=== PATIENT | female | born 1990 | race Asian ===

== ENCOUNTER 2018-09-21 12:00 | Inpatient (IN) ==
[2018-09-21] MEDS ORDERED: KETOROLAC TROMETHAMINE 15 MG/ML VIAL IV ONE (12:19)
[2018-09-21] MEDS ORDERED: SODIUM CHLORIDE 0.9% 1000ML 2,000 ML IV ONE (12:19)
[2018-09-21 13:15] LABS: Hematocrit (blood only) 37.2 % (37-47); Hemoglobin 12.4 g/dL (12.0-16.0); Immature Granulocytes # (auto) 0.02 K/uL (0.00-0.02); Immature Granulocytes % (auto) 0.3 %; Lymphocytes # (auto) 1.71 K/uL (1.2-3.4); Lymphocytes % (auto) 29.2 %; Mean Corpuscular Hgb Conc 33.3 g/dL (32-36); Mean Platelet Volume 10.1 fL (7.4-10.4); Monocytes # (auto) 0.73 K/uL (0.11-0.59); Monocytes % (auto) 12.5 %; Platelet Count 203 K/uL (130-400); RDW Coefficient of Variation 12.1 % (11.5-14.5); RDW Standard Deviation 40.4 fL (36.4-46.3); Red Blood Count 4.09 M/uL (4.2-5.4); White Blood Count 5.86 K/uL (4.8-10.8)
[2018-09-21 13:20] LABS: INR 1.1 (0.9-1.1); Partial Thromboplastin Ratio 1.1; Partial Thromboplastin Time 30.2 Seconds (21.0-31.0); Prothrombin Time 11.6 Seconds (9.0-12.0)
[2018-09-21 13:30] LABS: Albumin Level 3.6 gm/dl (3.4-5.0); BUN Creatinine Ratio 7.2 (10-20); Calcium 9.3 mg/dl (8.5-10.1); Creatinine Clr Calc Pharmacy 84.6 ml/min; Est GFR (African American) 126.9; Est GFR (Non-African American) 109.5; Potassium 3.8 mmol/L (3.5-5.1)
[2018-09-21 13:33] LABS: Albumin Globulin Ratio 0.7 (0.9-2); Bilirubin,Total 0.6 mg/dl (0.2-1); Total Protein 8.6 gm/dl (6.4-8.2)
[2018-09-21 13:34] LABS: Appearance Urine Clear (Clear); Bilirubin Urine Negative (Negative); Blood Urine Negative (Negative); Color Urine Yellow; Glucose Urine UA Negative (Negative); Ketones Urine Negative (Negative); Leukocyte Esterase Urine Negative (Negative); Nitrite Urine Negative (Negative); Protein Urine Negative (Negative); Specific Gravity Urine 1.014 (1.000-1.030); Urobilinogen Urine Negative (Negative)
[2018-09-21] MEDS ORDERED: IOVERSOL 100ml IV PRN (14:02)
--- NOTE | 2018-09-21 14:28 | CT Scan Report ---
CHEST CT WITH CONTRAST CT DOSE: 249.43 mGy.cm HISTORY: Acute fever with cough, weight loss and recent travel. Patient is reportedly from [facility]. [facility] for pulmonary tuberculosis. ? TB fevers x 1 mo, cough, weight loss, travel TECHNIQUE: Multiaxial CT images of the chest were performed following the intravenous administration of contrast. A dose lowering technique was utilized adhering to the principles of ALARA. COMPARISON: None. FINDINGS: Thyroid appears normal. Heart is normal in size without pericardial effusion. Thoracic aorta is sammy l in course and caliber without aneurysm or dissection. The opacified pulmonary arterial tree is unre markable. Conglomerate right supraclavicular adenopathy with ill-defined margins measures up to appro ximately 2.8 x 1.4 cm. axillary adenopathy identified. Heterogeneous pathologically enlarged lymph no luis are also seen throughout the mediastinum with conglomerate subcarinal adenopathy demonstrating ar eas of central necrosis overall measuring up to 3.9 x 2.6 x 3.3 cm in transverse, AP and craniocaudal dimensions. Enlarged paratracheal, precarinal and AP window lymph nodes are also present with promin ent bilateral hilar adenopathy. There are a few calcified lymph nodes present about the right hilum. Trace pleural effusions. No pneumothorax. Scattered multi segmental multilobar bilateral miliary cent rilobular and perilymphatic nodules within a mid and lower lung zone prominent distribution. Atelecta sis noted about the medial segment right middle lobe. No obstructing endobronchial lesion identified. Mild dependent subsegmental right basilar atelectasis. 5 mm pleural-based solid nodule of the ethical hacker ior basal segment left lower lobe, image 192 series 4. Scattered areas of multifocal mucus plugging. No acute process of the imaged upper abdomen. Breast parenchyma and soft tissues appear unremarkable. Bones appear to be intact. IMPRESSION: 1. Extensive pathologic adenopathy of the right supraclavicular distribution and mediastinum with nec rotic lymph nodes present within the subcarinal distribution. 2. Multilobar multi segmental distribution of centrilobular and perilymphatic miliary nodules with tr lu pleural effusions. Differential considerations would include infectious or inflammatory pneumonit is such as primary tuberculosis considering patient history. Pulmonary consultation should be conside red. 3. Mild multifocal mucus plugging with subsegmental atelectasis of the medial segment right middle lo be and inferior segment lingula. Findings were discussed with Dr. Rojas on 09/21/2018 at 2:24 PM Electronically signed by: Haile Khan M.D. 09/21/2018 2:27 PM
--- NOTE | 2018-09-21 14:48 | Emergency Department Note ---
Entered by Natividad Beck acting as a scribe for History of Present Illness General Chief complaint: Fever Source: patient Mode of arrival: ambulatory Limitations: no limitations History of Present Illness Provider complaint: fever Onset (ago): month(s) 1 Location: head Pain Consistency: + other (persistent) Maximum Pain Intensity: 4 Quality: + other (fever) Associated symptoms: + denies other symptoms, + cough and + other (mass); no nausea/vomiting The patient is a 27 year old female who presents to the ER with complaints of a persistent fever that began a month ago. Fevers have been as high as 101 fairly consistently. The patient reports that about a month ago she returned from [facility], where she was for 3 weeks. Per triage note, the patient has had weight loss as well. Patient notes that she has lost a total of 10 pounds. The patient states she also noticed a mass on her neck. She denies any runny nose, nausea, vomiting and diarrhea but notes she has had a cough for about 3 weeks. No other exacerbating or remitting factors. No previous history of TB. Home Medications Home Medications Medication Instructions Recorded Confirmed Type acetaminophen [Tylenol Extra 500 mg PO Q6H PRN 09/21/18 09/21/18 History Strength] Allergies Allergy/AdvReac Type Severity Reaction Status Date / Time No Known Allergies Allergy Unverified 09/21/18 12:51 Past Med/Surg History Medical History No significant past medical history Family History Other Family history non-contributory Social History Feels Safe at Home: Yes Smoking Status: Never smoker Review of Systems See HPI for pertinent positives & negatives. and A total of 10 systems reviewed and were otherwise negative Physical Exam Vital Signs Vital Signs - 24 hr 09/21/18 12:04 09/21/18 13:05 09/21/18 13:33 Temperature 37.6 C H Temperature Source Oral Sepsis Recent Fever Within 48 Hours Yes Sepsis New/Unexplained Change in Mental Status No Sepsis Action Taken by Nursing No Action Required Pulse Rate 104 H 93 H 91 H Pulse Rate from SpO2 Sensor 93 H 92 H Respiratory Rate 18 19 22 Respiratory Effort / Characteristics Non-Labored Spontaneous Respiratory Depth Normal Blood Pressure 94/67 L 103/65 Blood Pressure Mean 76 77 Pulse Oximetry 98 98 98 Oxygen Delivery Method Room Air GENERAL: Sitting up in bed, with persistent cough, non-productive, NAD. Talking in full sentences. OROPHARYNX: no exudate, no erythema, lips, buccal mucosa, and tongue normal and mucous membranes are moist EARS: TMs clear bilaterally. NECK: supple, no nuchal rigidity, + supraclavicular and anterior cervical adenopathy LUNGS: Mild wheezing right upper lobe. Normal chest wall mechanics HEART: no murmurs, S1 normal and S2 normal ABDOMEN: abdomen soft, non-tender, normo-active bowel sounds, no masses, no rebound or guarding. BACK: Back is symmetrical on inspection and there is no deformity, no midline tenderness, no CVA tenderness. SKIN: no rashes and no bruising UPPER EXTREMITIES: upper extremities are grossly normal. LOWER EXTREMITIES: No pitting edema. Calves are equal bilaterally. NEURO EXAM: Normal sensorium, cranial nerves II-XII grossly intact, normal speech, no gross weakness of arms, no gross weakness of legs. Course ED COURSE: Vital signs were reviewed and showed hypotension, tachycardia and a fever. The patients medical record was reviewed The above diagnostic studies were performed and reviewed. ED treatments and interventions as stated above. 1208: The patient was evaluated in room C5. A complete history and physical examination was performed. 1424: I discussed the patients imaging with Dr. Khan [facility]. 1428: I updated the patient. 1431: I reviewed the patient's case with Dr. Guerra - [facility] Hospitalist. He will evaluate the patient for further management. 1438: I discussed my findings with the patient and she understands and agrees with the treatment plan. Based on the patients age, coexisting illnesses, exam and lab findings the decision to treat as an inpatient was made. The patient remained stable while under my care. The patient will be evaluated for further management. Administered Medications Ioversol (Optiray 320 100ml) 94 ml IV ONCE PRN PRN Reason: Interaction Checking Stop: 09/25/18 14:01 Last Admin: 09/21/18 14:03 Dose: 94 ml Documented by: [id number] Discontinued Medications Sodium Chloride (Nss 1000ml) 2,000 mls @ 999 mls/hr IV .Q2H1M ONE Stop: 09/21/18 14:19 Last Admin: 09/21/18 13:16 Dose: 999 mls/hr Documented by: [id number] Ketorolac Tromethamine (Toradol) 15 mg IV NOW ONE Stop: 09/21/18 12:20 Last Admin: 09/21/18 13:14 Dose: 15 mg Documented by: [id number] Medical Decision Making Differential Diagnosis Differential diagnosis: viral syndrome, otitis, pharyngitis, pneumonia, influenza, meningitis, urinary tract infection, sepsis, bacteremia, as well as others were entertained. Home Medications Current Medication List: was personally reviewed by me Laboratory Data Attestation: I reviewed the patient's lab results. Result diagrams: 09/21/18 12:51 09/21/18 12:51 Lab Results 09/21/18 09/21/18 09/21/18 Range/Units 12:45 12:51 12:51 WBC 5.86 (4.8-10.8) K/uL RBC 4.09 L (4.2-5.4) M/uL Hgb 12.4 (12.0-16.0) g/dL Hct 37.2 (37-47) % MCV 91.0 (80-100) fL MCH 30.3 (25-34) pg MCHC 33.3 (32-36) g/dL RDW Std Deviation 40.4 (36.4-46.3) fL RDW Coeff of Aneesh 12.1 (11.5-14.5) % Plt Count 203 (130-400) K/uL MPV 10.1 (7.4-10.4) fL Immature Gran % (Auto) 0.3 % Neut % (Auto) 58.0 % Lymph % (Auto) 29.2 % [place] % (Auto) 12.5 % Eos % (Auto) 0.0 % Baso % (Auto) 0.0 % Immature Gran # (Auto) 0.02 (0.00-0.02) K/uL Neut # (Auto) 3.40 (1.4-6.5) K/uL Lymph # (Auto) 1.71 (1.2-3.4) K/uL [place] # (Auto) 0.73 H (0.11-0.59) K/uL Eos # (Auto) 0.00 (0-0.5) K/uL Baso # (Auto) 0.00 (0-0.2) K/uL PT (9.0-12.0) Seconds INR (0.9-1.1) APTT (21.0-31.0) Seconds PTT Ratio Sodium 134 L (136-145) mmol/L Potassium 3.8 (3.5-5.1) mmol/L Chloride 102 (98-107) mmol/L Carbon Dioxide 25 (21-32) mmol/L Anion Gap 8.0 (3-11) BUN 5 L (7-18) mg/dl Creatinine 0.74 (0.6-1.2) mg/dl Est Cr Clr Drug Dosing 84.6 ml/min Est GFR ( Amer) 126.9 Est GFR (Non-Af Amer) 109.5 BUN/Creatinine Ratio 7.2 L (10-20) Glucose 87 (70-99) mg/dl Lactate (0.4-2.0) mmol/L Calcium 9.3 (8.5-10.1) mg/dl Total Bilirubin 0.6 (0.2-1) mg/dl AST 35 (15-37) U/L ALT 42 (12-78) U/L Alkaline Phosphatase 128 H (45-117) U/L Total Protein 8.6 H (6.4-8.2) gm/dl Albumin 3.6 (3.4-5.0) gm/dl Globulin 5.0 H (2.5-4.0) gm/dl Albumin/Globulin Ratio 0.7 L (0.9-2) Urine Color Yellow Urine Appearance Clear (Clear) Urine pH 5.0 (4.5-7.5) Ur Specific [place] 1.014 (1.000-1.030) Urine Protein Negative (Negative) Urine Glucose (UA) Negative (Negative) Urine Ketones Negative (Negative) Urine Blood Negative (Negative) Urine Nitrite Negative (Negative) Urine Bilirubin Negative (Negative) Urine Urobilinogen Negative (Negative) Ur Leukocyte Esterase Negative (Negative) 09/21/18 09/21/18 Range/Units 12:51 12:53 WBC (4.8-10.8) K/uL RBC (4.2-5.4) M/uL Hgb (12.0-16.0) g/dL Hct (37-47) % MCV (80-100) fL MCH (25-34) pg MCHC (32-36) g/dL RDW Std Deviation (36.4-46.3) fL RDW Coeff of Aneesh (11.5-14.5) % Plt Count (130-400) K/uL MPV (7.4-10.4) fL Immature Gran % (Auto) % Neut % (Auto) % Lymph % (Auto) % [place] % (Auto) % Eos % (Auto) % Baso % (Auto) % Immature Gran # (Auto) (0.00-0.02) K/uL Neut # (Auto) (1.4-6.5) K/uL Lymph # (Auto) (1.2-3.4) K/uL [place] # (Auto) (0.11-0.59) K/uL Eos # (Auto) (0-0.5) K/uL Baso # (Auto) (0-0.2) K/uL PT 11.6 (9.0-12.0) Seconds INR 1.1 (0.9-1.1) APTT 30.2 (21.0-31.0) Seconds PTT Ratio 1.1 Sodium (136-145) mmol/L Potassium (3.5-5.1) mmol/L Chloride (98-107) mmol/L Carbon Dioxide (21-32) mmol/L Anion Gap (3-11) BUN (7-18) mg/dl Creatinine (0.6-1.2) mg/dl Est Cr Clr Drug Dosing ml/min Est GFR ( Amer) Est GFR (Non-Af Amer) BUN/Creatinine Ratio (10-20) Glucose (70-99) mg/dl Lactate 0.7 (0.4-2.0) mmol/L Calcium (8.5-10.1) mg/dl Total Bilirubin (0.2-1) mg/dl AST (15-37) U/L ALT (12-78) U/L Alkaline Phosphatase (45-117) U/L Total Protein (6.4-8.2) gm/dl Albumin (3.4-5.0) gm/dl Globulin (2.5-4.0) gm/dl Albumin/Globulin Ratio (0.9-2) Urine Color Urine Appearance (Clear) Urine pH (4.5-7.5) Ur Specific [place] (1.000-1.030) Urine Protein (Negative) Urine Glucose (UA) (Negative) Urine Ketones (Negative) Urine Blood (Negative) Urine Nitrite (Negative) Urine Bilirubin (Negative) Urine Urobilinogen (Negative) Ur Leukocyte Esterase (Negative) Imaging Data Radiologist's Impression: Radiology results as stated below per my review and the radiologist's interpretation: CHEST CT WITH CONTRAST CT DOSE: 249.43 mGy.cm HISTORY: Acute fever with cough, weight loss and recent travel. Patient is reportedly from [facility]. Clinical concern for pulmonary tuberculosis. ? TB fevers x 1 mo, cough, weight loss, travel TECHNIQUE: Multiaxial CT images of the chest were performed following the intravenous administration of contrast. A dose lowering technique was utilized adhering to the principles of ALARA. COMPARISON: None. FINDINGS: Thyroid appears normal. Heart is normal in size without pericardial effusion. Thoracic aorta is normal in course and caliber without aneurysm or dissection. The opacified pulmonary arterial tree is unremarkable. Conglomerate right supraclavicular adenopathy with ill-defined margins measures up to approximately 2.8 x 1.4 cm. axillary adenopathy identified. Heterogeneous pathologically enlarged lymph nodes are also seen throughout the mediastinum with conglomerate subcarinal adenopathy demonstrating areas of central necrosis overall measuring up to 3.9 x 2.6 x 3.3 cm in transverse, AP and craniocaudal dimensions. Enlarged paratracheal, precarinal and AP window lymph nodes are also present with prominent bilateral hilar adenopathy. There are a few calcified lymph nodes present about the right hilum. Trace pleural effusions. No pneumothorax. Scattered multi segmental multilobar bilateral miliary centrilobular and perilymphatic nodules within a mid and lower lung zone prominent distribution. Atelectasis noted about the medial segment right middle lobe. No obstructing endobronchial lesion identified. Mild dependent subsegmental right basilar atelectasis. 5 mm pleural-based solid nodule of the posterior basal segment left lower lobe, image 192 series 4. Scattered areas of multifocal mucus plugging. No acute process of the imaged upper abdomen. Breast parenchyma and soft tissues appear unremarkable. Bones appear to be intact. IMPRESSION: 1. Extensive pathologic adenopathy of the right supraclavicular distribution and mediastinum with necrotic lymph nodes present within the subcarinal d istribution. 2. Multilobar multi segmental distribution of centrilobular and perilymphatic miliary nodules with trace pleural effusions. Differential considerations would include infectious or inflammatory pneumonitis such as primary tuberculosis considering patient history. Pulmonary consultation should be considered. 3. Mild multifocal mucus plugging with subsegmental atelectasis of the medial segment right middle lobe and inferior segment lingula. Findings were discussed with Dr. Rojas on 09/21/2018 at 2:24 PM Electronically signed by: Haile Khan M.D. 09/21/2018 2:27 PM Blood Pressure Blood Pressure Findings: Low blood pressure Blood Pressure Disposition: further management by hospitalist MISTI Narrative Patient is a 27-year-old female who presents the ER for cough associated with a fever which is been present for the past 4 weeks. Fevers have been 101-102. Patient has had weight loss. Labs were obtained showed no significant leukocytosis or anemia. INR is unremarkable. BMP along with LFTs and bilirubin was unremarkable. UA was negative. Sputum cultures were ordered. CT of the chest suggest primary TB/tuberculosis. Discussed with infectious disease and they recommended holding on antibiotics until confirmatory testing is performed. Discussed with the hospitalist and they are updated bedside. Patient was given IV fluids and IV Toradol. He was updated and admitted to the hospital for further work-up of her tuberculosis. Impression & Plan Tuberculosis, Fever, Hypotension Discharge Plan Visit Data Chief Complaint: Fever ED Provider: Bobby Rojas Discharge Problem: Tuberculosis, Fever, Hypotension Patient Disposition: Being Evaluated by Hospitalist Forms Stand Alone Forms: My [facility] Prescriptions Prescriptions: No Action acetaminophen [Tylenol Extra Strength] 500 mg Tablet 500 mg PO Q6H PRN (Reason: Pain) RF: 0 Referrals Referrals: [facility] [Primary Care Provider] - Discharge Problem: Fever Qualifiers: Fever type: unspecified Qualified Code(s): R50.9 - Fever, unspecified Hypotension Qualifiers: Hypotension type: unspecified hypotension type Qualified Code(s): I95.9 - Hypotension, unspecified The scribe's documentation has been prepared under my direction and personally reviewed by me in its entirety. I confirm that the note above accurately reflects all work, treatment, procedures, and medical decision making performed by me.
--- NOTE | 2018-09-21 15:00 | History & Physical Report ---
Date of Service September 21, 2018 Assessment & Plan (1) Tuberculosis: Patient is here with possible tuberculosis seen on CT scan. Her symptoms are consistent. Infectious disease consult be undertaken. 3 sputum for AFB will be drawn. Recored returned from [place] and there is a pending gold Quant iferon drawn on 09/18. Infectious disease recommends no antibiotic therapy at this time until we have confirmation of tuberculosis. There is not focal or atypical infiltrate seen on chest CT nor she having significant pulmonary symptoms to warrant treating [facility] pneumonia. At this time should be on respiratory airborne isolation History of Present Illness Primary Care Provider: [facility] The patient is a 27 year old female who presents to the ER with complaints of a persistent fever that began 3 weeks ago. Fevers have been as high as 101 fairly consistently. The patient reports that about a month ago she returned from [facility], where she was for 3 weeks. 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 We are trying to arrange records from the clinic through the ER. Phone #[phone]. Reportedly the patient did have testing there including serology and she believes she had a TB test there 2. The patient states she also noticed a mass at the base of her right neck over the last few weeks also. She denies any runny nose, nausea, vomiting and diarrhea. The ER notes the patient was complaining of a cough she denied a cough to me. Patient denies having any recent exposure to tuberculosis she believes she was tested in May regarding tuberculosis and was deemed disease-free. She does recall that as a youth her one sister was receiving tuberculosis treatment. She states that she did complete a course of azithromycin through the clinic in [place]. Currently is comfortable and without complaints Allergies Allergy/AdvReac Type Severity Reaction Status Date / Time No Known Allergies Allergy Unverified 09/21/18 12:51 Home Medications Home Medications Medication Instructions Recorded Confirmed Type acetaminophen [Tylenol Extra 500 mg PO Q6H PRN 09/21/18 09/21/18 History Strength] Past Med/Surg History Medical History No significant past medical history Family History Sister Lung disease She believes her sister had tuberculosis as when the patient was very young Other Family history non-contributory Social History Feels Safe at Home: Yes Smoking Status: Never smoker Review of Systems Review of Systems: ROS: well nourished well developed. No double vision blurry vision No problems with speech or swallowing No palpitations, chest pain or pressure No Wheezing was listed complaints of coughing in the intake review of systems No abdominal pain nausea vomiting diarrhea patient had a 10 pound weight loss over the last 3 weeks No burning urine urine frequency or changes in color No focal joint pain or muscle pain No skin rashes or oral lesions No unusual bruising or bleeding No focused back pain or numbness or loss of strength No changes in memory or confusion Physical Exam Physical Exam: The patient appeared well nourished and normally developed. But petite Vital signs as documented. Head exam is unremarkable. normocephalic, atraumatic Neck is without jugular venous distension, there is a 4 firm 2 x 3 cm mass at the base of her right neck which is mobile likely lymphadenopathy Lungs are clear to auscultation and percussion. Cardiac exam reveals Rhythm is regular. First and second heart sounds normal. Abdominal exam reveals normal bowel sounds, no masses, no organomegaly Extremities are nonedematous and both pedal pulses are present Neurologic exam is A&Ox3, no focal deficits, strength is equal bilateral Psychologically seems neither anxious or depressed Skin is warm Dry without bruises or lesions Results & Data Vital Signs (Past 12 Hours) Vital Signs Temp Pulse Resp BP Pulse Ox 09/21/18 13:33 91 H 22 98 09/21/18 13:05 93 H 19 103/65 98 09/21/18 12:04 37.6 C H 104 H 18 94/[address] chest . Extensive pathologic adenopathy of the right supraclavicular distribution and mediastinum with necrotic lymph nodes present within the subcarinal distribution. 2. Multilobar multi segmental distribution of centrilobular and perilymphatic miliary nodules with trace pleural effusions. Differential considerations would include infectious or inflammatory pneumonitis such as primary tuberculosis considering patient history. Pulmonary consultation should be considered. 3. Mild multifocal mucus plugging with subsegmental atelectasis of the medial segment right middle lobe and inferior segment lingula.
--- NOTE | 2018-09-21 15:42 | Infectious Disease Consult ---
Date of Consultation September 21, 2018 Assessment & Plan (1) PNA (pneumonia): highly suspicious for TB. Spoke with ER and primary service, will be admitted and placed in airborne isolation. will need sputum for routine and AFB x 3 or bronch if unable to provide. IGRA pending. hold abx until smear reviewed. She will need testing prior to initiation of abx and will need HIV testing as well. will follow results of sputum culture/smear and further discuss treatment based on results. History of Present Illness History of Present Illness called by ER due to concern for TB on ct chest with necrotic lymph nodes and infiltrates. pt is in airborne isolation in ER at time of my exam, discussed with ER and primary service. She is from [facility], currently studying in [place]. Has a sister who was treated for TB when the patient was 5 or 6 years old (her sister is 10 years older), no other known TB contacts. Travelled back to [facility] in 04/2018 for 3 weeks to visit family, denies sick contacts while there. For the past month she has had increased cough, intermittent yellow sputum, no blood, pleuritic cp, sob, no wheeze, f/c - up to 102 on daily basis, > 10lb unintentional weight loss, appetite stable and night sweats. She was treated at a clinic in [place] 2 weeks ago and given a z pack with no improvement, unclear if she had imaging. Also c/o painful mass base of right neck, ct showing necrotic node, denies trauma, no opening no drainage. Her is currently studying here at [employer], she came here in the last week due to ongoing illness to be with her . She states she had IGRA done in [place] before travelling here, unclear result. States previous TB testing in the past negative. 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 She denies having room mates, she has no children and denies any recent contact with children. No sputum culture done. currently afebirle, comfortable. no cp, no cough on my exam, no abd pain, no n/v/d, no new meds other than recent z pack, no gu symptoms. Allergies Allergy/AdvReac Type Severity Reaction Status Date / Time No Known Allergies Allergy Unverified 09/21/18 12:51 Home Medications Home Medications Medication Instructions Recorded Confirmed Type acetaminophen [Tylenol Extra 500 mg PO Q6H PRN 09/21/18 09/21/18 History Strength] Patient History Medical History No significant past medical history Family History Sister Lung disease She believes her sister had tuberculosis as when the patient was very young Other Family history non-contributory Social History Feels Safe at Home: Yes Smoking Status: Never smoker Review of Systems Review of Systems: All systems reviewed & are unremarkable except as noted in HPI & below Physical Exam Constitutional: WD/WN, vitals as above Eyes: PERRL, conjunctivae normal, anicteric sclerae ENMT: external ear and nose normal, oropharynx normal Respiratory: normal respiratory effort, lungs clear to auscultation Auscultation: + diminished lung sounds Cardiovascular: RRR, no murmur, no edema Gastrointestinal (Abdomen): normal bowel sounds, soft, nontender, no hepatosplenomegaly Musculoskeletal: no cyanosis or clubbing, extremities motor strength 5/5 Skin: no rashes, warm and dry right supraclavicular enlarged, tener node, no erythema, no warmth Psychiatric: A+Ox3, euthymic affect Results & Data Vital Signs (Past 12 Hours) Vital Signs Temp Pulse Pulse Resp BP BP Pulse Ox 09/21/18 15:27 83 21 100/61 99 09/21/18 13:33 91 H 22 98 09/21/18 13:05 93 H 19 103/65 98 09/21/18 12:04 37.6 C H 104 H 18 94/67 L 98
[2018-09-21] MEDS ORDERED: SODIUM CHLORIDE 0.9% 1,000 ML IV SCH (16:11)
[2018-09-21] MEDS ORDERED: ONDANSETRON INJ 2 MG/ML 2 ML VIAL IV PRN (16:11)
[2018-09-22] MEDS: ACETAMINOPHEN 325 MG TAB PO PRN ×3 (00:04→16:35)
[2018-09-22 07:58] LABS: Pregnancy Test, Serum Negative (Negative)
--- NOTE | 2018-09-22 09:39 | Family Medicine Progress Note ---
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 Possible TB -ID consulted. Pending sputum culture - may need bronch since having no phlegm. pending gold Quantiferon drawn on 09/18 at [facility]. -HIV screen and preg test ordered as per ID recommendation. -ID recommends no antibiotic therapy at this time until we have confirmation of tuberculosis. -Continue respiratory airborne isolation primary contact. Brother (Emergency Medical Technician) phone no - [phone] [facility] [phone] Subjective admitted for likely pulmonary TB Continues to have coughing. No phlegm Fever - Tmax 38.1 last night. appetite good c/o forehead ache Physical Exam Constitutional: + ill appearing and + thin Respiratory: normal respiratory effort, lungs clear to auscultation persistently coughing during visit Cardiovascular: RRR, no murmur, no edema Gastrointestinal (Abdomen): normal bowel sounds, soft, nontender, no hepatosplenomegaly Psychiatric: A+Ox3, euthymic affect Lymphatic: Large Right supraclavidular lymph node + Results & Data Vital Signs (Past 12 Hours) Vital Signs Temp Pulse Pulse Resp BP Pulse Ox 09/22/18 09:08 37.9 C H 09/22/18 07:55 37.0 C 89 16 103/66 100 09/22/18 04:00 36.7 C 09/21/18 23:55 38.1 C H 102 H 18 96/62 L 97
[2018-09-22 13:23] LABS: Pregnancy Test, Urine Negative (Negative)
--- NOTE | 2018-09-22 14:37 | Infectious Disease Progress Nt ---
Date of Service September 22, 2018 Assessment & Plan (1) PNA (pneumonia): highly suspicious for TB. continue airborne isolation. will need sputum for routine and AFB x 3 or bronch if unable to provide. IGRA pending. hold abx until smear reviewed. routine sputum culture ordered as well. will follow results of sputum culture/smear and further discuss treatment based on results. If smear + AFB would start the following medications: INH 300mg daily vitamin B6 25 mg daily Rifampin 600mg po daily Ethambutol 800mg daily pyrazinamide 1000mg daily would prefer to have sputum specimen obtained prior to initiation of abx to help increase yield. did discuss case with [facility] earlier today, will plan to do intake visit on Tuesday. Await culture results. Subjective pt remains in isolation, awaiting sputum cultures, reportedly unable to provide specimen. had fever overnight tmax 38.1. wbc 5.8. urine negative, HIV negativ, IGRA pending. uric acid ordered as will be needed by [facility]. blood cultures pending. no abx as awaiting afb smear. Results & Data Vital Signs (Past 12 Hours) Vital Signs Temp Pulse Resp BP Pulse Ox 09/22/18 09:08 37.9 C H 09/22/18 07:55 37.0 C 89 16 103/66 100 09/22/18 04:00 36.7 C
[2018-09-23] MEDS: ACETAMINOPHEN 325 MG TAB PO PRN ×2 (02:39→12:09)
[2018-09-23 06:32] LABS: Hematocrit (blood only) 33.3 % (37-47); Hemoglobin 11.1 g/dL (12.0-16.0); Mean Corpuscular Hgb Conc 33.3 g/dL (32-36); Mean Corpuscular Volume 89.8 fL (80-100); Mean Platelet Volume 9.6 fL (7.4-10.4); Platelet Count 186 K/uL (130-400); RDW Coefficient of Variation 12.1 % (11.5-14.5); RDW Standard Deviation 39.5 fL (36.4-46.3); Red Blood Count 3.71 M/uL (4.2-5.4); White Blood Count 5.34 K/uL (4.8-10.8)
[2018-09-23 07:09] LABS: BUN Creatinine Ratio 7.1 (10-20); Calcium 8.4 mg/dl (8.5-10.1); Creatinine Clr Calc Pharmacy 99.4 ml/min; Est GFR (African American) 140.5; Est GFR (Non-African American) 121.2; Potassium 3.9 mmol/L (3.5-5.1)
--- NOTE | 2018-09-23 10:04 | Family Medicine Progress Note ---
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 Possible TB -ID consulted. Pending sputum culture - Since continuing to have dry cough - spoke to Dr. Kay - will arrange bronch today to get sample. pending gold Quantiferon drawn on 09/18 at [facility]. -HIV screen and preg test negative. -ID recommends no antibiotic therapy at this time until we have confirmation of tuberculosis. -Continue respiratory airborne isolation primary contact. Brother (Stemhole Borer) phone no - [phone] [facility] [place] - [phone] Subjective Had fever again last night 39 degrees Cough still dry. No phlegm. Denies shortness of breath appetite - normal. no chest pain Physical Exam Constitutional: + ill appearing and + thin Respiratory: normal respiratory effort, lungs clear to auscultation Cardiovascular: RRR, no murmur, no edema Gastrointestinal (Abdomen): normal bowel sounds, soft, nontender, no hepatosplenomegaly Psychiatric: A+Ox3, euthymic affect Lymphatic: right supraclavicular enlarged lymph node + Results & Data Vital Signs (Past 12 Hours) Vital Signs Temp Pulse Resp BP Pulse Ox 09/23/18 07:26 36.3 C L 72 16 97/61 L 99 09/23/18 06:03 36.6 C 09/23/18 02:39 39 C H 09/22/18 23:42 37.6 C H 95 H 18 100/64 99
--- NOTE | 2018-09-23 13:08 | Pre Anesthesia Assessment ---
Date of Service September 23, 2018 Pre Sedation Assessment Vital Signs Temp Pulse Resp BP Pulse Ox 09/23/18 16:13 36.7 C 84 16 96/61 L 99 09/23/18 12:10 38.7 C H 09/23/18 07:26 36.3 C L 72 16 97/61 L 99 09/23/18 06:03 36.6 C 09/23/18 02:39 39 C H 09/22/18 23:42 37.6 C H 95 H 18 100/64 99 09/22/18 21:25 36.8 C 97 H 18 97/76 L 97 Pre-Sedation Airway Assessment Smoking Status: Never smoker Notes The planned sedation has been discussed with the patient. Informed Consent was obtained. I have identified the patient, determined the appropriateness of sedation and have assessed the patient immediately prior to the procedure. All medicine(s) and interventions are by my order. 500 mcg fentanyl to bedside, Precedex infusion with 30 mcg bolus over 10 minutes Patient n.p.o. greater than 8 hours secondary to breakfast at 9 AM. No prior anesthesia, no known allergies Danielle Cinthya score class I ASA class I Supervising Physician Co-Signing Physician Notes Sedation occurring in ICU with digital manager, advanced airway adjuncts.
--- NOTE | 2018-09-23 13:09 | Procedure Note ---
Procedure Note: Bronchoscopy Procedure Procedure date: September 23, 2018 Indication: [place] female with concern for tuberculosis. Procedure: fiberoptic bronchoscopy Pre-procedure indication: Reactive lymphadenopathy, mucoid impaction, concern for miliary tuberculosis Post-procedure Diagnosis: same as above Prior to Procedure: Informed Consent: The risks, benefits, indications, potential complications, and alternatives were explained to the patient and informed consent obtained. Attending Staff: Se Kay DO Resident/APC: Not applicable Skin Prep: Not applicable Anesthesia: Continuous infusion of Precedex with a total 250 mcg fentanyl given in 100 mcg aliquots The identity of the patient was confirmed and a bedside time out was performed. Description of Procedure: Fiberoptic bronchoscopy was performed via full facemask CPAP. Bronchioalveolar lavage right middle lobe was performed. Evaluation for diffuse alveolar hemorrhage was obtained, #3 50 mL aliquots of normal saline was instilled into the left middle lobe and removed (85 mL normal saline removed), there was no evidence of bleeding at all. A bronchial brushing of the right lower lobe was obtained. Findings included: Mild hyperemia of the large central airways, no evidence of mucoid impaction, no evidence of distal mucous. Images were obtained and are saved in the patient's chart. Complications: None Specimens: Bronchial washings sent for culture and Gram stain, cytology, fungal elements, and AFB stain and culture. Estimated blood loss: Zero
[2018-09-23] MEDS ORDERED: fentaNYL citrate 100 MCG/2 ML VIAL IV STA (19:06)
[2018-09-23] MEDS ORDERED: DEXMEDETOMIDINE HCL 200 MCG in SODIUM CHLORIDE 0.9% 48 ML IV SCH (19:07)
[2018-09-23] MEDS ORDERED: DexMEDEtomidine BOLUS FROM BAG IV ONE (19:07)
[2018-09-23] MEDS ORDERED: fentaNYL citrate 100 MCG/2 ML VIAL ONE (19:15)
[2018-09-23] MEDS ORDERED: GLYCOPYRROLATE 0.2 MG/ML VIAL ONE (19:25)
[2018-09-23] MEDS ORDERED: GLYCOPYRROLATE 0.2 MG/ML VIAL IV ONE (19:25)
--- NOTE | 2018-09-23 20:05 | Post Anesthesia Assessment ---
Date of Service September 23, 2018 Procedural start time 1929 procedural end time 1999 Anesthesia: Precedex infusion 0.2 mcg/kg/min after 30 mcg bolus given over 10 minutes. Fentanyl IV 100 mcg IV push x2 additional 50 mcg x 1 total 250 mcg given Total sedation time: 30 minutes At end of sedation patient is alert oriented asked 1 to anticipate bronchoscopy results. Vital signs unchanged from admission. Stable for downgrade to previous room. She will not be discharged from the hospital today. Post Sedation Assessment Vital Signs Temp Pulse Pulse Resp BP Pulse Ox 09/23/18 19:47 97 H 14 95/66 L 100 09/23/18 19:39 89 14 116/82 100 09/23/18 16:13 36.7 C 84 16 96/61 L 99 09/23/18 12:10 38.7 C H 09/23/18 07:26 36.3 C L 72 16 97/61 L 99 09/23/18 06:03 36.6 C 09/23/18 02:39 39 C H 09/22/18 23:42 37.6 C H 95 H 18 100/64 99 09/22/18 21:25 36.8 C 97 H 18 97/76 L 97 Post Sedation Plan On clinical assessment, the patient appears to have tolerated the sedation without complications. Patient is recovering as anticipated. Patient will continue to be monitored by nursing and may be discharged when sedation discharge criteria are met per below protocol. Upon Completions of procedure and additional 15 minutes continue every 5 minute vital signs and the P.A.R. score; then discharge to a Phase I or Fast Track to Phase II per the following guidelines: * Discharge Patient to appropriate Phase II area if PAR is 8 or greater or return to pre- procedure baseline. The post - procedure orders will be as directed. * If PAR score is less than 8 or not return to pre-procedure baseline then patient will follow Phase I monitoring till PAR is reached for Phase II. The Phase I may be done in procedure room or may call to secure a Phase I area. * If naloxone or flumazenil are used for reversal, hold in Phase I for continued monitoring from when last reversal dose was given for a minimum of 60 minutes or longer pending the nurse and/or physician discretion of patient condition before discharge to Phase II. Please call the Sedation Physician to re-evaluate and complete post-note for discharge to Phase II area. Do NOT discharge from procedure sedation or Phase 1 until post- sedation evaluation note is complete by procedure /sedation MD Sedation Discharge Instructions to be given to the patient at discharge to home.
[2018-09-23] MEDS ORDERED: ACETAMINOPHEN 65 ML IV ONE (21:30)
--- NOTE | 2018-09-24 07:33 | Infectious Disease Progress Nt ---
Date of Service September 24, 2018 Assessment & Plan (1) PNA (pneumonia): highly suspicious for TB. continue airborne isolation. s/p bronch, AFB smear and culture pending. IGRA pending. sputum cultures ordered, not obtained as pt unable to provide specimen. will follow results of sputum culture/smear but due to high suspicion for TB and ongoing fevers, will start TB emperically in hospital. She will continue her treatment with [facility] tomorrow. She will plan to have intake eval at that time. She will need to remain on home isolation until she is able to provide 3 negative smears - additional sputum will be obtained by [facility]. Now that specimen has been collected will start the following medications and will follow smear and culture results: INH 300mg daily vitamin B6 25 mg daily Rifampin 600mg po daily Ethambutol 800mg daily pyrazinamide 1000mg daily Subjective pt still with intermittent fevers, 39.2 overnight. s/p bronch yesterday, tolerated well. fungal, routine and afb cultures pending, afb smear pending as well. blood cultures remain negative IGRA pending, test and HIV test are negative. Results & Data Vital Signs (Past 12 Hours) Vital Signs Temp Pulse Pulse Resp BP Pulse Ox 09/24/18 00:53 36.8 C 75 20 92/52 L 97 09/23/18 21:13 39.2 C H 103 H 16 107/71 94 09/23/18 20:50 38.2 C H 100 H 16 100/63 94 09/23/18 20:30 102 H 16 108/68 100 09/23/18 20:25 98 H 16 111/69 100 09/23/18 20:20 107 H 16 98/66 L 100 09/23/18 20:15 97 H 16 107/69 100 09/23/18 20:10 98 H 16 103/67 100 09/23/18 20:05 97 H 16 100/64 100 09/23/18 20:00 105 H 16 103/66 100 09/23/18 19:55 100 H 16 106/76 100 09/23/18 19:50 94 H 16 107/71 100 09/23/18 19:47 97 H 14 95/66 L 100 09/23/18 19:39 89 14 116/82 100 Laboratory Results Microbiology 09/21/18 12:51 Blood Aerobic Blood Culture - Preliminary No growth in Aerobic bottle after 48 hours. 09/21/18 12:51 Blood Anaerobic Blood Culture - Preliminary No growth in Anaerobic bottle after 48 hours. 09/21/18 12:55 Blood Aerobic Blood Culture - Preliminary No growth in Aerobic bottle after 48 hours. 09/21/18 12:55 Blood Anaerobic Blood Culture - Preliminary No growth in Anaerobic bottle after 48 hours.
--- NOTE | 2018-09-24 09:05 | Family Medicine Progress Note ---
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 Possible TB -ID consulted. Underwent bronch 09/23 to get sample for culture. Results pending. pending gold Quantiferon drawn on 09/18 at [facility]. -considering persistent spiking fever - ID starting treatment for TB - INH, Ethambutol, pyrazinamide, rifampin - reviewed side effects. -Continue respiratory airborne isolation primary contact. Brother (Page Designer) phone no - [phone] [facility] clinic - [phone] Subjective had fever again last night. cough still present without phlegm. appetite low this morning denies shortness of breath, chest pain Physical Exam Constitutional: + ill appearing and + thin sitting at the edge of bed Respiratory: normal respiratory effort, lungs clear to auscultation Cardiovascular: RRR, no murmur, no edema Gastrointestinal (Abdomen): normal bowel sounds, soft, nontender, no hepatosplenomegaly Psychiatric: A+Ox3, euthymic affect Lymphatic: right supraclavicular LN + Results & Data Vital Signs (Past 12 Hours) Vital Signs Temp Pulse Resp BP Pulse Ox 09/24/18 07:41 37.6 C H 87 20 101/66 100 09/24/18 00:53 36.8 C 75 20 92/52 L 97 09/23/18 21:13 39.2 C H 103 H 16 107/71 94
[2018-09-24] MEDS: rifAMPin 300 MG CAPSULE PO SCH (09:26)
[2018-09-24] MEDS: ETHAMBUTOL HCL 400 MG TAB PO SCH (09:26)
[2018-09-24] MEDS: ISONIAZID 300 MG TAB PO SCH (09:27)
[2018-09-24] MEDS: PYRIDOXINE HCL 50 MG TAB PO SCH (09:27)
[2018-09-24] MEDS: PYRAZINAMIDE 500 MG TABLET PO SCH (09:27)
[2018-09-24] MEDS: ACETAMINOPHEN 325 MG TAB PO PRN ×2 (09:40→20:43)
[2018-09-25 07:15] LABS: Hematocrit (blood only) 34.1 % (37-47); Hemoglobin 11.4 g/dL (12.0-16.0); Mean Corpuscular Hgb Conc 33.4 g/dL (32-36); Mean Corpuscular Volume 90.2 fL (80-100); Mean Platelet Volume 9.4 fL (7.4-10.4); Platelet Count 180 K/uL (130-400); RDW Coefficient of Variation 12.1 % (11.5-14.5); RDW Standard Deviation 40.2 fL (36.4-46.3); Red Blood Count 3.78 M/uL (4.2-5.4); White Blood Count 5.76 K/uL (4.8-10.8)
[2018-09-25 07:49] LABS: BUN Creatinine Ratio 9.8 (10-20); Calcium 8.6 mg/dl (8.5-10.1); Creatinine Clr Calc Pharmacy 94.9 ml/min; Est GFR (African American) 138.4; Est GFR (Non-African American) 119.4; Potassium 4.1 mmol/L (3.5-5.1)
[2018-09-25 09:34] LABS: Quantiferon Mitogen-NIL 5.51 IU/ML; Quantiferon NIL 2.77 IU/ML; Quantiferon TB Gold Plus POSITIVE (NEGATIVE); Quantiferon TB1-NIL 4.66 IU/ML; Quantiferon TB2-NIL 4.64 IU/ML
[2018-09-25] MEDS: PYRIDOXINE HCL 50 MG TAB PO SCH (09:54)
[2018-09-25] MEDS: ISONIAZID 300 MG TAB PO SCH (09:55)
[2018-09-25] MEDS: PYRAZINAMIDE 500 MG TABLET PO SCH (09:55)
[2018-09-25] MEDS: ETHAMBUTOL HCL 400 MG TAB PO SCH (09:55)
[2018-09-25] MEDS: rifAMPin 300 MG CAPSULE PO SCH (09:55)
--- NOTE | 2018-09-25 10:12 | Infectious Disease Progress Nt ---
Date of Service September 25, 2018 Assessment & Plan (1) PNA (pneumonia): highly suspicious for TB. continue airborne isolation. s/p bronch, AFB smear negative, culture pending. IGRA +, sister had TB during childhood. sputum cultures ordered, not obtained as pt unable to provide specimen. will follow results of sputum culture/smear but due to high suspicion for TB and ongoing fevers, will start TB meds started yesterday in hospital. She is tolerating well. She will continue her treatment with [facility] tomorrow. She will plan to have intake eval at time of d/c. She will need to remain on home isolation, she is eager to travel back to [place], she will be unable to so at this time. due to negative afb bronch smear but + IGRA she will remain on meds. would benefit from lymph node aspiration and culture - routine and afb as she may have isolated lymph node disease but will continue to follow bronch culture as well. she has not had breakfast. Ideally, if aspirate could be done today, she could be d/c after she receives abx with plans to follow with [facility] tomorrow. will discuss with primary. Continue abx for now. INH 300mg daily vitamin B6 25 mg daily Rifampin 600mg po daily Ethambutol 800mg daily pyrazinamide 1000mg daily Subjective pt seen in followup, s/p bronch, afb smear negative, routine culture with nml nida only. IGRA +. Started on 4 abx yesterday emperically pending cultures, tolerating well. afebrile since 11 am yesterday. has not eaten breakfast yet. still having pain in right neck, remains swollen. no f/c. no cp, no cough, no sob. no abd pain, no n/v/d. no hemoptysis. she is anxious to be d/c home, she is also eager to travel back to [place], states she is enrolled in summer classes there. did fly to [place] last week. Review of Systems Review of Systems: All systems reviewed & are unremarkable except as noted in HPI & below Physical Exam Constitutional: WD/WN, vitals as above Eyes: PERRL, conjunctivae normal, anicteric sclerae ENMT: external ear and nose normal, oropharynx normal Neck: normal visual inspection (right supraclavicular tender lymph node unchanged, no opening) Respiratory: normal respiratory effort, lungs clear to auscultation Cardiovascular: RRR, no murmur, no edema Gastrointestinal (Abdomen): normal bowel sounds, soft, nontender, no hepatosplenomegaly Musculoskeletal: no cyanosis or clubbing, extremities motor strength 5/5 Skin: no rashes, warm and dry Psychiatric: A+Ox3, euthymic affect Results & Data Vital Signs (Past 12 Hours) Vital Signs Temp Pulse Resp BP Pulse Ox 09/25/18 06:23 36.8 C 75 16 102/67 99 09/24/18 23:25 37.2 C 101 H 16 94/62 L 97 Laboratory Results Microbiology 09/23/18 19:15 Bronch [place],Right Middle Lobe Acid Fast Bacilli Smear - Final 09/23/18 19:15 Bronch [place],Right Middle Lobe Gram Stain - Final 09/23/18 19:15 Bronch Wash,Right Middle Lobe Bronchoalveolar Lavage Culture - Preliminary Light normal nida present, final report to follow. 09/23/18 19:15 Bronch [place],Right Middle Lobe Fungal Smear - Final 09/21/18 12:51 Blood Aerobic Blood Culture - Preliminary No growth in Aerobic bottle after 48 hours. 09/21/18 12:51 Blood Anaerobic Blood Culture - Preliminary No growth in Anaerobic bottle after 48 hours. 09/21/18 12:55 Blood Aerobic Blood Culture - Preliminary No growth in Aerobic bottle after 48 hours. 09/21/18 12:55 Blood Anaerobic Blood Culture - Preliminary No growth in Anaerobic bottle after 48 hours.
--- NOTE | 2018-09-25 12:48 | Surgery Consultation ---
Date of Consultation September 25, 2018 Assessment & Plan (1) Lymphadenopathy: Patient has lymphadenopathy from suspected tuberculosis. I have spent at least 45-minute attempting to coordinate aspiration of her right supraclavicular lymphadenopathy. I have been in contact with the radiologist and pathologist on numerous occasions today. The current plan is to have aspiration performed by the pathologist tomorrow morning. I have discussed this with the patient and her and they seem to agree. They are very anxious charged from the hospital. History of Present Illness Attending Physician: Bobby Santiago DO History of Present Illness Asked to see patient for possible aspiration of right supraclavicular lymphadenopathy. Patient apparently has a diagnosis of tuberculosis. He was admitted to the hospital with persistent fever undergoing bronchoscopy and followed closely by infectious disease. Allergies Allergy/AdvReac Type Severity Reaction Status Date / Time No Known Allergies Allergy Unverified 09/21/18 12:51 Home Medications Home Medications Medication Instructions Recorded Confirmed Type acetaminophen [Tylenol Extra 500 mg PO Q6H PRN 09/21/18 09/21/18 History Strength] Patient History Medical History No significant past medical history Family History Sister Lung disease She believes her sister had tuberculosis as when the patient was very young Other Family history non-contributory Social History Preferred Language: Tajik Communication Ability: Effective Admitting Supervisor Required: No Beliefs That Will Affect Care: None Current Living Situation: Alone Other Information That Helps Us Care for You: No Feels Safe at Home: Yes Safety Concerns: Feels Safe At This Time Smoking Status: Never smoker Hx Alcohol Use: No Hx Substance Use: No Review of Systems Review of Systems: All systems reviewed & are unremarkable except as noted in HPI & below Physical Exam Physical Exam: Patient is awake and alert in no distress Her sclera are anicteric her neck is supple she does have palpable mass-effect in the right supraclavicular area. She is breathing well without distress Her vital signs have been stable with normal pulse Her extremities are warm and well-perfused without rash. Results & Data Vital Signs (Past 12 Hours) Vital Signs Temp Pulse Resp BP Pulse Ox 09/25/18 06:23 36.8 C 75 16 102/67 99
--- NOTE | 2018-09-25 20:33 | Family Medicine Progress Note ---
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 Possible TB -Highly suspicioustreatment started. Biopsy tomorrow of lymph node given the AFB results thus far -Hopefully able to be discharged tomorrow with department of health assistance. primary contact. Brother ([employer]) phone no - [phone] [facility] clinic - [phone] (2) Lymphadenopathy: (3) Fever: Subjective Feeling okay, mostly bored. Seems to be a little bit anxious about the lymph node biopsy tomorrow. I tried to explain to the best of my ability and allay some of her fears. She expresses good understanding of her situation. No other acute complaints. Review of Systems Review of Systems: All systems reviewed & are unremarkable except as noted in HPI & below Physical Exam Physical Exam: In general she is awake and alert pleasant no distress. HEENT normocephalic atraumatic mucous members moist. Breathing unlabored no accessory muscle use good effort. Skin shows no rashes no pallor or icterus. Neuro shows cranial nerves II through XII are grossly intact gross motor and sensory intact. Results & Data Vital Signs (Past 12 Hours) Vital Signs Temp Pulse Resp BP Pulse Ox 09/25/18 15:07 37.2 C 94 H 18 95/60 L 97 (1) Fever Fever type: unspecified Qualified Code(s): R50.9 - Fever, unspecified
[2018-09-26] MEDS: PYRAZINAMIDE 500 MG TABLET PO SCH (09:19)
[2018-09-26] MEDS: ISONIAZID 300 MG TAB PO SCH (09:19)
[2018-09-26] MEDS: rifAMPin 300 MG CAPSULE PO SCH (09:19)
[2018-09-26] MEDS: PYRIDOXINE HCL 50 MG TAB PO SCH (09:19)
[2018-09-26] MEDS: ETHAMBUTOL HCL 400 MG TAB PO SCH (09:19)
--- NOTE | 2018-09-26 10:08 | Infectious Disease Progress Nt ---
Date of Service September 26, 2018 Assessment & Plan (1) PNA (pneumonia): highly suspicious for TB. continue airborne isolation. s/p bronch, AFB smear negative, culture pending. IGRA +, sister had TB during childhood. sputum cultures ordered, not obtained as pt unable to provide specimen. will follow results of sputum culture/smear but due to high suspicion for TB and ongoing fevers, will start TB meds started in hospital. She is tolerating well. She will continue her treatment with [facility] tomorrow. She will plan to have intake eval at time of d/c. She will need to remain on home isolation, she is eager to travel back to [place], she will be unable to so at this time. due to negative afb bronch smear but + IGRA she will remain on meds. would benefit from lymph node aspiration and culture - routine and afb as she may have isolated lymph node disease but will continue to follow bronch culture as well.She is scheduled to have this done today. She will be cleared for d/c on home isolation after she takes her meds this am and has lymph node aspirate and culture, please send AFB culture to micro lab. Continue abx for now. INH 300mg daily vitamin B6 25 mg daily Rifampin 600mg po daily Ethambutol 800mg daily pyrazinamide 1000mg daily Subjective spoke with pathology, radiology and surgery yesterday, pt scheduled to undergo lymph node aspiration today with pathology for AFB culture. AFB bronch smear negative, culture pending. started on 4 drug tb therapy over weekend, now remains afebrile. IGRA + no cavitation noted on ct chest. tolerating abx well. plans to establish care with [facility] upon d/c. I spoke with [facility] this am and updated on hospital course. Results & Data Vital Signs (Past 12 Hours) Vital Signs Temp Pulse Pulse Resp BP Pulse Ox 09/26/18 07:29 36.6 C 37 L 18 99/63 L 98 09/25/18 23:30 37.1 C 88 16 98/57 L 98 Laboratory Results Microbiology 09/23/18 19:15 Bronch Wash,Right Middle Lobe Gram Stain - Final 09/23/18 19:15 Bronch Wash,Right Middle Lobe Bronchoalveolar Lavage Culture - Final Light normal nida. 09/23/18 19:15 Bronch [place],Right Middle Lobe Acid Fast Bacilli Smear - Final 09/23/18 19:15 Bronch Wash,Right Middle Lobe Fungal Smear - Final 09/21/18 12:51 Blood Aerobic Blood Culture - Preliminary No growth in Aerobic bottle after 48 hours. 09/21/18 12:51 Blood Anaerobic Blood Culture - Preliminary No growth in Anaerobic bottle after 48 hours. 09/21/18 12:55 Blood Aerobic Blood Culture - Preliminary No growth in Aerobic bottle after 48 hours. 09/21/18 12:55 Blood Anaerobic Blood Culture - Preliminary No growth in Anaerobic bottle after 48 hours.
--- NOTE | 2018-09-26 19:18 | Discharge Summary ---
Date of Service September 26, 2018 Admission HPI Per Admitting Provider The patient is a 27 year old female who presents to the ER with complaints of a persistent fever that began 3 weeks ago. Fevers have been as high as 101 fairly consistently. The patient reports that about a month ago she returned from [place], where she was for 3 weeks. Patient is undergoing training in [place] and after describing her symptoms to a family member was a physician presented to the clinic in [place], the [facility]. We are trying to arrange records from the clinic through the ER. Phone #[phone]. Reportedly the patient did have testing there including serology and she believes she had a TB test there 2. The patient states she also noticed a mass at the base of her right neck over the last few weeks also. She denies any runny nose, nausea, vomiting and diarrhea. The ER notes the patient was complaining of a cough she denied a cough to me. Patient denies having any recent exposure to tuberculosis she believes she was tested in May regarding tuberculosis and was deemed disease-free. She does recall that as a youth her one sister was receiving tuberculosis treatment. She states that she did complete a course of azithromycin through the clinic in [place]. 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 HEENT normocephalic atraumatic mucous members moist. Breathing unlabored no accessory muscle use good effort. Skin shows no rashes no pallor or icterus. Neuro shows cranial nerves II through XII are grossly intact gross motor and sensory intact. Discharge Data Allergies Allergy/AdvReac Type Severity Reaction Status Date / Time No Known Allergies Allergy Unverified 09/21/18 12:51 Consultations 09/21/18 14:35 ED Decision to Admit Stat 09/21/18 16:11 Consult Case Management - Discharge Planning Routine Consult Infectious Diseases Routine 09/23/18 08:59 Consult Planning Manager Routine 09/25/18 10:13 Consult General Surgery Routine Ordered Studies 09/21/18 12:17 CT chest w con Stat found to be suspicious for TB Bronc washings without clear-cut AFB, cultures pending. Lymph node biopsy culture pending. 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 Possible TB -Highly suspicioustreatment started. Biopsy tomorrow of lymph node given the AFB results thus far -Cultures pending, ongoing outpatient work-up and treatment underway. Stable for home with isolation. Department of Health involved. (2) Lymphadenopathy: (3) Fever: Total Time Total Time Spent Total Time Spent (In Minutes): Less than 30 Discharge Plan Discharge Items Patient Disposition: Home - Self-Care Reason For Visit: POSSIBLE TB Discharge Diagnosis: highly suspicious for tuberculosis Discharge Goals: Diagnostic testing and Therapeutic intervention Activity: Resume your previous activity Activity Comment: exposure restrictions per department of health Non-emergency contact: Primary Care Provider and Specialist Call non-emergency contact if: you have any medication questions and your symptoms worsen Follow-up/Referrals: [facility] [Primary Care Provider] - Diet: Regular Addtl Provider Instructions: highly suspicious tuberculosis -your situation with the findings on lung CT and lymph nodes are highly suspicious for tuberculosis -cultures are still pending - we'll ask that you have follow up with Dr Rodríguez ([facility] infectious disease - [phone]) and through the department of health -the situation is concerning enough to start treatment (see below) which will be coordinated through the department of britton biopsy -the lymph node appears to be swollen related to the tuberculosis infection - the biopsy will have made things feel more irritated for a few days, but should quickly calm down. ice the area frequently (approximately 20 minutes every few hours) and use tylenol as needed for pain (don't exceed 2000mg of tylenol (acetaminophen) in a day -the results will likely take a few weeks (tuberculosis is very slow to grow on cultures - generally measured in weeks rather than days. this will be the same for the cultures from your bronchoscopy) Prescriptions: [place] 300 mg Tablet 300 mg PO QAM Qty: 30 RF: 0 rifampin 300 mg Capsule 600 mg PO QAM Qty: 30 RF: 0 ethambutol [Myambutol] 400 mg Tablet 800 mg PO DAILY Qty: 30 RF: 0 pyrazinamide 500 mg Tablet 1,000 mg PO QAM Qty: 30 RF: 0 Continued acetaminophen [Tylenol Extra Strength] 500 mg Tablet 500 mg PO Q6H PRN (Reason: Pain) RF: 0 Stand-Alone Forms: [facility] Discharge Orders: Discharge Order (Routine); Ordered 09/26/18 Ordered By: Bobby Santiago Admission Data Admit Date/Time: 09/21/18 14:56 Attending Provider: Bobby Santiago Admit Provider: Shad Pino Primary Care Provider: [facility] Other Providers: Shad Pino ; Zainab Rodríguez ; Rajeev Kay ; Karley Luke ; Floyd Jamison Service: Medical Other Interventions: Discharge Summary Assessment (RN) Last Done: 09/26/18 10:15 DC Date/Time DO NOT enter until pt leaves facility: 09/26/18 13:10
--- NOTE | 2018-11-01 10:46 | Intensivist Progress Note ---
Date of Service November 01, 2018 Assessment & Plan (1) Acid-fast bacteria present: I was notified by laboratory of + acid fast bacteria present on Bronchial [place]. I notfified infection control (Kayla Cardenas) of result. Laboratory also advised notification of [place] department of health. Formal ID to be performed at [facility]. PG Care Time/CCT Total # of Minutes Spent Total Time Spent with Patient: Total time spent is greater than 50% in coordination of care (as documented) at patient's floor/unit and/or counseling patient:
== END 2018-09-26 13:10 | disposition home or self-care (01) | DRG 168 ==
LOC: ED 12:00 → SUATTDRO 14:56 → 4W 14:56 → 1E 09-23 19:53 → 4W 09-23 20:44
DX: R59.0 Localized enlarged lymph nodes; A15.9 Respiratory tuberculosis unspecified; I95.9 Hypotension, unspecified